=== PATIENT | male | born 2000 | race African-American/Black ===

== ENCOUNTER 2021-03-23 21:55 | Emergency (ER) | payer BC, OTHER ==
[~2021-03-23] VITALS: Ht 185 cm; Wt 79.4 kg
--- OUTSIDE RECORDS SUMMARY | 2021-03-23 22:01 | XMS REPORT | Clinical Summary ---
Author Author [facility] Organization [facility] Address Unknown Phone Unavailable Care Team Providers Care Brick[employer] Name Role Phone PCP Unavailable Allergies Not on File Medications Not on file Active Problems Not on file Social History Date Tobacco Use Types Packs/Day Years Used Never Assessed Sex Assigned at Date Recorded Not on file Last Filed Vital Signs Not on file Plan of Treatment Not on file Results Not on filefrom Last 3 Months
--- NOTE | 2021-03-23 22:24 | ED EENT ---
History of Present Illness General Chief Complaint: Laceration Stated Complaint: R CHEEK LAC Source: patient Exam Limitations: no limitations (LAUREN SAMUELS APRN) History of Present Illness Date Seen by Provider: Mar 23, 2021 Time Seen by Provider: 22:20 Initial Comments To ER by private vehicle. He is here playing basketball from [facility]. They are playing [facility] [employer]. He was elbowed in the right cheek during one of the games and now has a laceration. Timing/Duration: abrupt Severity: mild Location: facial Prearrival Treatment: no prearrival treatment Associated Symptoms: denies symptoms (LAUREN SAMUELS APRN) Allergies and Home Medications Patient Home Medication List Home Medication List Reviewed: Yes (LAUREN SAMUELS APRN) Review of Systems Review of Systems Constitutional: see HPI Eyes: No Symptoms Reported Ears: No Symptoms Reported Nose: no symptoms reported Mouth: no symptoms reported Throat: no symptoms reported Respiratory: no symptoms reported Cardiovascular: no symptoms reported Musculoskeletal: no symptoms reported (LAUREN SAMUELS APRN) Past Kwwmxyq-Awikkm-Aifovi Hx Patient Social History Tobacco Use?: No Substance use?: No Alcohol Use?: No (LAUREN SAMUELS APRN) Physical Exam Vital Signs Vital Signs - First Documented 03/23/21 22:06 Temp 37.1 Pulse 60 Resp 16 B/P (MAP) 127/74 (91) Pulse Ox 100 O2 Delivery Room Air (BRITTNI ZAMBRANO DO) Height, Weight, BMI Height: '" Weight: lbs. oz. kg; BMI Method: General Appearance: WD/WN, no apparent distress Eyes: bilateral eye normal inspection, bilateral eye PERRL, bilateral eye EOMI Ears: bilateral ear auricle normal, bilateral ear canal normal, bilateral ear TM normal Nose: other (There is a 1 cm laceration over the right cheek. Depth this to the subcutaneous tissue. Minimal active bleeding. The underlying bone is nontender to palpation. Extraocular muscles are intact. This was anesthetized with 1 mL of 1% lidocaine without epinephrine scrubbed with chlorhexidine/saline solution and closed with 3 simple interrupted sutures size 6-0 Prolene. Left open to air.) Mouth/Throat: normal mouth inspection, pharynx normal Neck: non-tender, full range of motion Respiratory: no respiratory distress, no accessory muscle use Gastrointestinal: normal bowel sounds, non tender Neurologic/Psychiatric: alert, normal mood/affect Skin: normal color, warm/dry (LAUREN SAMUELS APRN) Progress/Results/Core Measures Results/Orders Vital Signs/I&O 03/23/21 03/23/21 22:06 22:28 Temp 37.1 37.1 Pulse 60 60 Resp 16 16 B/P (MAP) 127/74 (91) 127/74 Pulse Ox 100 100 O2 Delivery Room Air Room Air (BRITTNI ZAMBRANO DO) Departure Impression Primary Impression: Facial laceration Disposition: HOME, SELF-CARE Condition: Stable Departure-Patient Inst. Decision time for Depature: 22:23 (LAUREN SAMUELS APRN) Referrals: NO,LOCAL PHYSICIAN (PCP/Family) Primary Care Physician Patient Instructions: Laceration Repair With Stitches (DC) Add. Discharge Instructions: 1. You are free to return to sports tomorrow. You can shower letting water run over this starting tomorrow morning. Return to ER for any concerns. Stitches should be removed at either [facility], primary care provider, walk-in clinic or urgent care in about 5 to 7 days. All discharge instructions reviewed with patient and/or family. Voiced understanding. ATTENDING PHYSICIAN NOTE: I WAS PHYSICALLY PRESENT ER PHYSICIAN WHEN THIS PATIENT WAS IN ER, BUT I WAS NOT INVOLVED IN ANY DECISION MAKING OR ANY CARE OF THIS PATIENT. (BRITTNI ZAMBRANO DO) LAUREN SAMUELS APRN Mar 23, 2021 22:24 BRITTNI ZAMBRANO DO Mar 24, 2021 02:50
[2021-03-23 22:28] VITALS: BP 127/74
== END 2021-03-23 22:28 | disposition home or self-care (01) ==
LOC: ER 21:57
DX: S01.411A Laceration without foreign body of right cheek and temporomandibular area, initial encounter (principal); W50.0XXA Accidental hit or strike by another person, initial encounter; Y93.67 Activity, basketball
CPT/HCPCS: 12011